=== PATIENT | male | born 1965 | race Caucasian/White ===

== ENCOUNTER 2024-06-03 11:46 | Outpatient (CLI) | payer OTHER, SELFPAY ==
[2024-06-03 12:35] LABS: Anion Gap 18.9 (5-19); Blood Urea Nitrogen 14 mg/dL (6-20); Calcium 9.9 mg/dL (8.5-10.5); Carbon Dioxide 23 mmol/L (22-29); Chloride 98 mmol/L (98-107); Glomerular Filtration Rate 51.9 mL/min (90-130); Glucose 133 mg/dL (65-115); Osmolality Calculated 284 mOsm/kg (285-295); Potassium 3.9 mmol/L (3.5-5.1); Sodium 136 mmol/L (136-145)
== END 2024-06-03 11:47 | disposition home or self-care (01) ==
DX: I10 Essential (primary) hypertension (principal)
CPT/HCPCS: 80048